=== PATIENT | female | born 1970 | race Two or more races ===

== ENCOUNTER 2016-03-14 14:17 | Emergency (ER) | payer MEDICAID ==
[2016-03-14 14:59] VITALS: BP 132/85; PULSE 73; RESP 18; TEMP 98.6; O2SAT 99
[2016-03-14] MEDS ORDERED: NS 1,000 ML IV ONE (15:26)
[2016-03-14] MEDS ORDERED: ONDANSETRON 4 MG/2 ML VIAL IVP ONE (15:28)
--- NOTE | 2016-03-14 15:33 | UCPHY ---
H & P Patient Type: New Chief Complaint Nursing Narrative: PAINFUL SHINGLES WOUNDS CONTINUE FOR 2 WEEKS , SEEN 2 WEEKS AGO AND GIVEN ANTIVIRAL, SEEN AT [facility] LAST NIGHT GIVEN ABX - BACTRIM AND KELFEX, STATES DOES NOT FEEL TODAY. DENIES FEVERS Time Seen by Provider: 03/14/16 15:13 HPI/ROS: This patient complains of vomiting anorexia, fevers and ongoing significant left forearm rash from shingles. She reports 6 episodes of shingles this year and this episode was diagnosed 2 weeks ago. She completed a 10 day course of acyclovir 4 days ago with complication of vomiting and syncope 2 days ago. She was seen at [facility] Emergency Department and rehydrated noted to have leukocytosis at that time with cultures that were pending. She also had diarrhea at that time. She reports ongoing nausea and vomiting since then despite Zofran at home. She had a fever of 101 last night and this morning. She has been taking Tylenol with partial relief. Her last dose was 3 and 0.5 hours ago. ROS: She reports no headache or other HEENT complaints. She reports feeling lousy in terms of constitutional symptoms she describes fatigue. No pulmonary symptoms. Cardiovascular: No lightheadedness today. GI: She has anorexia. She denies abdominal pain. Her diarrhea resolved. Her vomiting persists. The most recent episode was at noon. No hematemesis. : No symptoms integumentary: She has a large scab to left forearm that she states has been similar to her previous episodes of shingles. 10 point ROS is otherwise negative Source: Patient Exam Limitations: No limitations - Medical/Surgical History PMH: Tested negative for HIV 6 months ago and she denies any risk factors for HIV. This study was done because of her recurrent shingles. Other PMH: SHINGLES 7 TIMES IN 2016 WITH +MRSA IN WOUNDS, PROTEIN S DEF - Family History Significant Family History: No pertinent family hx - Social History Smoking Status: Never smoked Alcohol Use: Occasionally Drug Use: None Additional Social History: She works as a live-in auto mechanic She recently moved to [place] from [place]. Her episodes of shingles started while she was living in [place]. She denies any significant recent stressors. - Physical Exam Exam: General Appearance: Alert, no distress. Eyes: Pupils equal and round no pallor or injection. ENT, Mouth: Mucous membranes moist. Respiratory: There are no retractions, lungs are clear to auscultation. Cardiovascular: Regular rate and rhythm. No murmur gallop or rub Gastrointestinal: Abdomen is soft and nontender, no masses, bowel sounds normal. Neurological: Alert with no focal deficits Skin: Patient has a large eschar to the left forearm approximately 15 cm x 4 cm was sharply demarcated borders. There is no significant surrounding erythema. There is no fluctuance or drainage. She has scarring to her skin in other locations. She has an abrasion to her right forehead as well that she states she sustained from the syncopal episode 2 days ago. Musculoskeletal: Neck is supple nontender. Extremities are symmetrical, full range of motion. Psychiatric: Patient is oriented X 3, there is no agitation. DIFFERENTIAL DIAGNOSIS: After history and physical exam differential diagnosis was considered for dehydration, shingles, other the skin pathology, cellulitis, metabolic disarray, Constitutional: Initial Vital Signs Temperature (C) 37.0 C 03/14/16 14:50 Heart Rate 73 03/14/16 14:50 Respiratory Rate 18 03/14/16 14:50 Blood Pressure 132/85 H 03/14/16 14:50 O2 Sat (%) 99 03/14/16 14:50 O2 Delivery Mode Room Air Allergies/Adverse Reactions: diphenhydramine HCl [From Benadryl] Allergy (Verified 03/14/16 14:49) moxifloxacin HCl [From Avelox] Allergy (Verified 03/14/16 14:49) promethazine HCl [From Phenergan] Allergy (Verified 03/14/16 14:49) Home Medications: Medication Instructions Recorded Xarelto 03/14/16 oxyCODONE/APAP 5/325 [Percocet 1 - 2 tab PO Q4-6PRN PRN #18 tab 03/14/16 5/325 (*)] Medical Decision Making ED Course/Re-evaluation: I reviewed patient's medical history faxed from [facility] which reveals 2 visits. The most recent was yesterday and there is a culture pending from that visit with no results yet available. She had a normal white count yesterday of 5.8. Yesterday there is a small amount of drainage from the eschar on her arm that was cultured. The physicians impression from that visit was staph cellulitis with wound complicating zoster that is resolving. I also reviewed visit from March 11 during which she had a normal head CT without contrast this was done because she apparently had some arm numbness at that time that has since resolved. No other studies including urinalysis urine tox screen and metabolic panel are normal from that visit. Here in our clinic she is treated with Zofran and a L saline bolus with resolution of nausea. Morphine for pain control. I reviewed p.m. PE of her recent scripts that include both hydrocodone and Percocet. However she does appear to have a painful arm lesion. I counseled her to be cautious regarding opiate use and warned her of potential complications. I also explained we would provide further opiate narcotics from the urgent care and she would need to follow up with primary care. Currently, patient appears well without significant toxicity. I think that she has adequate coverage from the oral Keflex and Bactrim for her eschar/ cellulitis with no significant surrounding erythema currently. - Data Points Laboratory Results: Laboratory Results 03/14/16 15:36 03/14/16 15:36 03/14/16 15:36 WBC 4.18 10^3/uL (3.80-9.50) RBC 4.30 10^6/uL (4.18-5.33) Hgb 12.7 g/dL (12.6-16.3) Hct 38.1 % (38.0-47.0) MCV 88.6 fL (81.5-99.8) MCH 29.5 pg (27.9-34.1) MCHC 33.3 g/dL (32.4-36.7) RDW 14.6 % (11.5-15.2) Plt Count 359 10^3/uL (150-400) MPV 9.5 fL (8.7-11.7) Neut % (Auto) 59.8 % (39.3-74.2) Lymph % (Auto) 31.8 % (15.0-45.0) [place] % (Auto) 7.2 % (4.5-13.0) Eos % (Auto) 0.5 L % (0.6-7.6) Baso % (Auto) 0.5 % (0.3-1.7) Nucleat RBC Rel Count 0.0 % (0.0-0.2) Absolute Neuts (auto) 2.50 10^3/uL (1.70-6.50) Absolute Lymphs (auto) 1.33 10^3/uL (1.00-3.00) Absolute Monos (auto) 0.30 10^3/uL (0.30-0.80) Absolute Eos (auto) 0.02 L 10^3/uL (0.03-0.40) Absolute Basos (auto) 0.02 10^3/uL (0.02-0.10) Absolute Nucleated RBC 0.00 10^3/uL (0-0.01) Immature Gran % 0.2 % (0.0-1.1) Immature Gran # 0.01 10^3/uL (0.00-0.10) Sodium 140 mEq/L (134-144) Potassium 3.9 mEq/L (3.5-5.2) Chloride 104 mEq/L (97-110) Carbon Dioxide 23 mEq/l (22-31) Anion Gap 13 mEq/L (8-16) BUN 6 L mg/dL (7-23) Creatinine 0.6 mg/dL (0.6-1.0) Estimated GFR > 60 Glucose 97 mg/dL (70-100) Calcium 9.5 mg/dL (8.5-10.4) Medications Given: Discontinued Medications Sodium Chloride (Ns) 1,000 mls @ 0 mls/hr IV ONCE ONE PRN Reason: Wide Open Stop: 03/14/16 15:27 Last Admin: 03/14/16 15:40 Dose: 1,000 mls Morphine Sulfate (Morphine) 6 mg IVP EDNOW ONE Stop: 03/14/16 15:48 Last Admin: 03/14/16 15:58 Dose: 6 mg Ondansetron HCl (Zofran) 4 mg IVP EDNOW ONE Stop: 03/14/16 15:29 Last Admin: 03/14/16 15:43 Dose: 4 mg Departure - Departure Disposition: Home, Routine, Self-Care Clinical Impression: Cellulitis of forearm, left Condition: Good Instructions: Cellulitis (ED) Additional Instructions: Diagnosis: Cellulitis left forearm with wound Plan: Continue Keflex and Bactrim. Her culture should be back within 24 hours from [facility]. Call them to discover the result. Cover your wounds with Tegaderm while your working. Change the dressing regularly. Percocet if needed for pain that prevents sleep. However use the Percocet sparingly. We will not prescribe further opiate narcotics for this condition. You need to follow up with the primary care physician. Call physician listed below to arrange follow-up appointment or see another of your choice Referrals: NONE *PRIMARY CARE P,. [Primary Care Provider] - As per Instructions Johana Blanchard MD [Medical Doctor] - As per Instructions Prescriptions: oxyCODONE/APAP 5/325 [Percocet 5/325 (*)] 1 - 2 tab PO Q4-6PRN PRN #18 tab PRN Reason: Pain - PQRS PQRS Measurement: NA
[2016-03-14 15:47] LABS: % IMMATURE GRANULYOCYTES 0.2 % (0.0-1.1); ABSOLUTE IMMATURE GRANULOCYTES 0.01 10^3/uL (0.00-0.10); ADD DIFF? NO; ADD MORPH? NO; ADD SCAN? NO; ATYPICAL LYMPHOCYTE FLAG 10 (0-99); FRAGMENT RBC FLAG 0 (0-99); HEMATOCRIT 38.1 % (38.0-47.0); HEMOGLOBIN 12.7 g/dL (12.6-16.3); LEFT SHIFT FLG 0 (0-99); LIPEMIA HEMOLYSIS FLAG 80 (0-99); MEAN CELL HEMOGLOBIN 29.5 pg (27.9-34.1); MEAN CELL HEMOGLOBIN CONCENTR. 33.3 g/dL (32.4-36.7); MEAN CELL VOLUME 88.6 fL (81.5-99.8); MEAN PLATELET VOLUME 9.5 fL (8.7-11.7); PLATELET CLUMPS FLAG 0 (0-99); PLATELET COUNT 359 10^3/uL (150-400); RED CELL DISTRIBUTION WIDTH 14.6 % (11.5-15.2)
[2016-03-14 16:00] LABS: ANION GAP 13 mEq/L (8-16); CALCIUM 9.5 mg/dL (8.5-10.4); CARBON DIOXIDE 23 mEq/l (22-31); CHLORIDE 104 mEq/L (97-110); CREATININE 0.6 mg/dL (0.6-1.0); GLOMERULAR FILTRATION RATE > 60; GLUCOSE 97 mg/dL (70-100); POTASSIUM 3.9 mEq/L (3.5-5.2); SODIUM 140 mEq/L (134-144)
== END 2016-03-14 17:42 | disposition home or self-care (01) ==
LOC: CED 14:17
DX: R11.10 Vomiting, unspecified (principal); R50.9 Fever, unspecified; R21 Rash and other nonspecific skin eruption
CPT/HCPCS: 80048-PO; 85025-PO; 96361-PO; 96374-PO; 96375-PO; 99214-PO; G0463-PO; J2405

== ENCOUNTER 2016-03-16 13:24 | Emergency (ER) | payer MEDICAID ==
[2016-03-16 13:49] VITALS: TEMP 98
[2016-03-16] MEDS ORDERED: NS 1,000 ML IV ONE (15:06)
[2016-03-16] MEDS ORDERED: ONDANSETRON 4 MG/2 ML VIAL IVP ONE (15:06)
--- NOTE | 2016-03-16 15:13 | UCPHY ---
H & P Patient Type: Established Chief Complaint Nursing Narrative: here wed DX with shingles to Lt wrist - put antibotics and coversed with tegaderm- wound now weeping and feel sick all over - fevers/N/V Source: Patient Exam Limitations: No limitations - Personal History LMP (Females 10-55): Post Menopausal - Medical/Surgical History Other PMH: Hx of shingles - Family History Significant Family History: No pertinent family hx - Social History Smoking Status: Never smoked HPI/ROS: CHIEF COMPLAINT: Shingles, nausea and vomiting HISTORY OF PRESENT ILLNESS: diagnosis shingles on her left forearm 2 days ago. She was discharged home with acyclovir and pain medication. Since that time she has had a worsening rash that is now sloughing off. She has some chills. 10/10 pain in the arm. No position of comfort. No alleviating factors. Worse with any kind of movement or palpation. She has been unable to keep down her medications due to this. No headache. No confusion. No weakness. No other associated complaints or modifying factors for this. REVIEW OF SYSTEMS: Ten systems reviewed and are negative unless otherwise noted in the HPI EXAMINATION General Appearance: Alert, no distress Head: normocephalic, atraumatic Eyes: Pupils equal and round, no conjunctival pallor or injection ENT, Mouth: Mucous membranes moist Neck: Normal inspection, supple, non-tender Respiratory: Lungs are clear to auscultation . Cardiovascular: Regular rate and rhythm . No murmur Gastrointestinal: Abdomen is soft and nontender Neurological: A&O, nonfocal, strength is symmetric. Skin: Warm and dry . There are multiple areas of scar tissue about both arms from remote. There is a 4 cm x 2 cm area vesicular rash along with skin sloughing and granulation tissue noted. No bleeding. No induration or fluctuance. There is some purulence in the wound bed. Extremities: Significant tenderness to palpation of the left forearm an area of rash. Otherwise range of motion is fully intact without abnormality. Psychiatric: Mood and affect normal DIFFERENTIAL DIAGNOSES: Including but not limited to: Shingles infection, secondary bacterial infection, cellulitis, abscess MDM: left forearm shingles that is refractory to oral medication in over 2 days. Significant pain in the area. Vital signs are stable. No other abnormalities on examination. Providing IV fluid resuscitation, pain medication and we will check laboratory studies. 4:16 p.m. labs are well within normal limits. Vital signs stable. I did review the patient's prescription monitoring profile, she has 12 prescriptions of narcotics within the past 30 days. Wound has been irrigated and debrided. We will discharge her home with nausea medication instruction to follow up with the primary care physician. 4:45 p.m. wound is significantly improved with good granulation tissue in the wound bed. We will dress the wound with a cotton 4 x 4 and Kerlix. Discharge home with continued therapy. She is to follow up with the primary care physician for further care. We discussed her recent narcotic prescriptions and I informed her that I declined to write her for any other medication at this time. Recommended that she obtain a primary care physician or painter ski edge for further pain medication. I also recommended that should her pain not be tolerable at home, she should present to the emergency department if it worsens. She is comfortable with this plan and discharged home stable condition. SUPERVISION: Patient was evaluated in conjunction with the supervising physician. Please see their note for details. (Reinier Caballero) Constitutional: Initial Vital Signs Temperature (C) 36.6 C 03/16/16 13:46 Heart Rate 83 03/16/16 13:46 Respiratory Rate 18 03/16/16 13:46 Blood Pressure 154/65 H 03/16/16 13:46 O2 Sat (%) 98 03/16/16 13:46 O2 Delivery Mode Room Air Allergies/Adverse Reactions: diphenhydramine HCl [From Benadryl] Allergy (Verified 03/14/16 14:49) moxifloxacin HCl [From Avelox] Allergy (Verified 03/14/16 14:49) promethazine HCl [From Phenergan] Allergy (Verified 03/14/16 14:49) Home Medications: Medication Instructions Recorded Xarelto 03/14/16 oxyCODONE/APAP 5/325 [Percocet 1 - 2 tab PO Q4-6PRN PRN #18 tab 03/14/16 5/325 (*)] Bactrim DS 03/16/16 Gabapentin [Neurontin 300 MG (*)] 300 mg PO Q8 PRN #15 cap 03/16/16 ceFAZolin 03/16/16 valACYclovir 03/16/16 Medical Decision Making Other Provider: The patient was evaluated and managed by the Physician Gas Plant Operator, Reinier Caballero. My co-signature indicates that I have reviewed this chart and I agree with the findings and plan of care as documented. I am the secondary supervising physician. (Birgit Valencia) - Data Points Laboratory Results: Laboratory Results 03/16/16 15:50 03/16/16 15:50 03/16/16 15:50 WBC 3.83 10^3/uL (3.80-9.50) RBC 4.04 L 10^6/uL (4.18-5.33) Hgb 12.0 L g/dL (12.6-16.3) Hct 35.9 L % (38.0-47.0) MCV 88.9 fL (81.5-99.8) MCH 29.7 pg (27.9-34.1) MCHC 33.4 g/dL (32.4-36.7) RDW 14.6 % (11.5-15.2) Plt Count 312 10^3/uL (150-400) MPV 9.6 fL (8.7-11.7) Neut % (Auto) 54.3 % (39.3-74.2) Lymph % (Auto) 35.0 % (15.0-45.0) [place] % (Auto) 8.1 % (4.5-13.0) Eos % (Auto) 1.8 % (0.6-7.6) Baso % (Auto) 0.5 % (0.3-1.7) Nucleat RBC Rel Count 0.0 % (0.0-0.2) Absolute Neuts (auto) 2.08 10^3/uL (1.70-6.50) Absolute Lymphs (auto) 1.34 10^3/uL (1.00-3.00) Absolute Monos (auto) 0.31 10^3/uL (0.30-0.80) Absolute Eos (auto) 0.07 10^3/uL (0.03-0.40) Absolute Basos (auto) 0.02 10^3/uL (0.02-0.10) Absolute Nucleated RBC 0.00 10^3/uL (0-0.01) Immature Gran % 0.3 % (0.0-1.1) Immature Gran # 0.01 10^3/uL (0.00-0.10) Sodium 140 mEq/L (134-144) Potassium 4.1 mEq/L (3.5-5.2) Chloride 104 mEq/L (97-110) Carbon Dioxide 24 mEq/l (22-31) Anion Gap 12 mEq/L (8-16) BUN 6 L mg/dL (7-23) Creatinine 0.6 mg/dL (0.6-1.0) Estimated GFR > 60 Glucose 100 mg/dL (70-100) Calcium 9.5 mg/dL (8.5-10.4) Medications Given: Discontinued Medications Sodium Chloride (Ns) 1,000 mls @ 0 mls/hr IV ONCE ONE PRN Reason: Wide Open Stop: 03/16/16 15:07 Last Admin: 03/16/16 15:50 Dose: 1,000 mls Morphine Sulfate (Morphine) 6 mg IVP EDNOW ONE Stop: 03/16/16 15:07 Last Admin: 03/16/16 16:05 Dose: 6 mg Ondansetron HCl (Zofran) 4 mg IVP EDNOW ONE Stop: 03/16/16 15:07 Last Admin: 03/16/16 15:55 Dose: 4 mg Departure - Departure Disposition: Home, Routine, Self-Care Clinical Impression: Shingles, Nausea & vomiting Condition: Good Instructions: Shingles (ED) Additional Instructions: Follow-up with primary care physician or painter ski edge. ER if your pain persists and is intolerable at home Referrals: NONE *PRIMARY CARE P,. [Primary Care Provider] - As per Instructions Shelia Berumen MD [Medical Doctor] - As per Instructions Prescriptions: Gabapentin [Neurontin 300 MG (*)] 300 mg PO Q8 PRN #15 cap PRN Reason: Pain, Mild - PQRS PQRS Measurement: Not applicable (Reinier Caballero)
[2016-03-16 15:58] LABS: % IMMATURE GRANULYOCYTES 0.3 % (0.0-1.1); ABSOLUTE IMMATURE GRANULOCYTES 0.01 10^3/uL (0.00-0.10); ADD DIFF? NO; ADD MORPH? NO; ADD SCAN? NO; ATYPICAL LYMPHOCYTE FLAG 20 (0-99); FRAGMENT RBC FLAG 0 (0-99); HEMATOCRIT 35.9 % (38.0-47.0); LEFT SHIFT FLG 0 (0-99); LIPEMIA HEMOLYSIS FLAG 80 (0-99); MEAN CELL HEMOGLOBIN 29.7 pg (27.9-34.1); MEAN CELL HEMOGLOBIN CONCENTR. 33.4 g/dL (32.4-36.7); MEAN CELL VOLUME 88.9 fL (81.5-99.8); MEAN PLATELET VOLUME 9.6 fL (8.7-11.7); PLATELET CLUMPS FLAG 0 (0-99); PLATELET COUNT 312 10^3/uL (150-400); RED BLOOD CELL COUNT 4.04 10^6/uL (4.18-5.33); RED CELL DISTRIBUTION WIDTH 14.6 % (11.5-15.2)
[2016-03-16 16:09] LABS: ANION GAP 12 mEq/L (8-16); CALCIUM 9.5 mg/dL (8.5-10.4); CARBON DIOXIDE 24 mEq/l (22-31); CHLORIDE 104 mEq/L (97-110); CREATININE 0.6 mg/dL (0.6-1.0); GLOMERULAR FILTRATION RATE > 60; GLUCOSE 100 mg/dL (70-100); POTASSIUM 4.1 mEq/L (3.5-5.2); SODIUM 140 mEq/L (134-144)
[2016-03-16 16:34] VITALS: BP 146/106; PULSE 90; RESP 20; O2SAT 97
== END 2016-03-16 17:00 | disposition home or self-care (01) ==
LOC: CED 13:24
DX: B02.9 Zoster without complications (principal); R11.2 Nausea with vomiting, unspecified
CPT/HCPCS: 11042-PO; 80048-PO; 85025-PO; 96361-PO; 96374-PO; 96375-PO; 99214-PO; G0463-PO; J2405

== ENCOUNTER 2016-03-19 19:41 | Emergency (ER) | payer MEDICAID ==
[2016-03-19 20:07] VITALS: TEMP 97.9
--- NOTE | 2016-03-19 21:11 | UCPHY ---
H & P Time Seen by Provider: 03/19/16 20:49 Patient Type: Established HPI/ROS: CHIEF COMPLAINT: rectal bleed HISTORY OF PRESENT ILLNESS: Patient is a 45-year-old female on Xarelto for protein S deficiency who presents to the emergency department with rectal bleeding since last night. The patient was diagnosed with shingles 3 weeks ago. She subsequently developed an infection at her shingles rash location on her left forearm. She was seen in urgent care on 03/16/2016 and given valacyclovir and Bactrim. Last night she had an episode of diarrhea and lower abdominal cramping. She noticed a slight amount of blood. She continued to have multiple episodes of diarrhea throughout the day. At 2:00 p.m. she had bright red blood in her diarrhea. She denies fevers or chills. No significant pain at this time. No lightheadedness or dizziness. REVIEW OF SYSTEMS: My complete review of systems is negative except as mentioned in the HPI. 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 HEENT: Eyes normal to inspection, normal pharynx, no signs of dehydration. NECK: No thyromegaly, no lymphadenopathy, supple. RESPIRATORY: Clear to auscultation bilaterally, no rales, rhonchi or wheezing. CVS: Regular rate and rhythm, no rubs, murmurs, or gallops. ABDOMEN: Soft, nontender, nondistended, no organomegaly. Benign BACK: No CVA tenderness. SKIN: Normal color, no rash, warm, dry. No pallor. EXTREMITIES: patient has a clean and dry dressing on her left forearm. This is at her zoster location. There is no surrounding erythema or streaking up her arm. She is neurovascular intact distally. NEURO/PSYCH: [Alert and oriented x3, normal mood and affect. Constitutional: Initial Vital Signs Temperature (C) 36.6 C 03/19/16 20:04 Heart Rate 92 03/19/16 20:04 Respiratory Rate 18 03/19/16 20:04 Blood Pressure 127/83 H 03/19/16 20:04 O2 Sat (%) 97 03/19/16 20:04 O2 Delivery Mode Room Air Allergies/Adverse Reactions: diphenhydramine HCl [From Benadryl] Allergy (Verified 03/14/16 14:49) moxifloxacin HCl [From Avelox] Allergy (Verified 03/14/16 14:49) promethazine HCl [From Phenergan] Allergy (Verified 03/14/16 14:49) Home Medications: Medication Instructions Recorded Xarelto 03/14/16 Bactrim DS 03/16/16 Gabapentin [Neurontin 300 MG (*)] 300 mg PO Q8 PRN #15 cap 03/16/16 ceFAZolin 03/16/16 valACYclovir 03/16/16 Medical Decision Making ED Course/Re-evaluation: Injuring care discussed possible etiologies with the patient. Patient is noted to be on Bactrim and Xarelto. An IV was placed. Laboratory studies were obtained. Stool studies were sent. Patient was given morphine 4 mg IV for pain control. I reviewed the patient's laboratory studies. She was mildly anemic but this is improved from her previous value. She has mild hypokalemia at 3.3. On recheck the patient was feeling better. I discussed her laboratory studies. She is aware that her C diff is pending. She is also aware she needs to follow up with the primary care physician for results. I answered all of her questions prior to leaving. She is given warnings prior to leaving. She will return with worsening symptoms. She will continue her medications as prescribed. Differential Diagnosis: My differential includes but is not limited to diarrhea, internal hemorrhoids, external hemorrhoids, diverticulosis, diverticulitis, C diff, electrolyte abnormality, anemia, medication reaction - Data Points Laboratory Results: Laboratory Results 03/19/16 22:00 03/19/16 22:00 03/19/16 03/19/16 22:00 21:15 WBC 7.34 10^3/uL (3.80-9.50) RBC 4.10 L 10^6/uL (4.18-5.33) Hgb 12.1 L g/dL (12.6-16.3) Hct 36.2 L % (38.0-47.0) MCV 88.3 fL (81.5-99.8) MCH 29.5 pg (27.9-34.1) MCHC 33.4 g/dL (32.4-36.7) RDW 15.3 H % (11.5-15.2) Plt Count 345 10^3/uL (150-400) MPV 9.5 fL (8.7-11.7) Neut % (Auto) 64.6 % (39.3-74.2) Lymph % (Auto) 28.1 % (15.0-45.0) [place] % (Auto) 5.9 % (4.5-13.0) Eos % (Auto) 0.7 % (0.6-7.6) Baso % (Auto) 0.4 % (0.3-1.7) Nucleat RBC Rel Count 0.0 % (0.0-0.2) Absolute Neuts (auto) 4.75 10^3/uL (1.70-6.50) Absolute Lymphs (auto) 2.06 10^3/uL (1.00-3.00) Absolute Monos (auto) 0.43 10^3/uL (0.30-0.80) Absolute Eos (auto) 0.05 10^3/uL (0.03-0.40) Absolute Basos (auto) 0.03 10^3/uL (0.02-0.10) Absolute Nucleated RBC 0.00 10^3/uL (0-0.01) Immature Gran % 0.3 % (0.0-1.1) Immature Gran # 0.02 10^3/uL (0.00-0.10) PT 12.6 SEC (12.0-15.0) INR 0.96 (0.83-1.16) APTT 26.3 SEC (23.0-38.0) Sodium 138 mEq/L (134-144) Potassium 3.3 L mEq/L (3.5-5.2) Chloride 100 mEq/L (97-110) Carbon Dioxide 24 mEq/l (22-31) Anion Gap 14 mEq/L (8-16) BUN 14 mg/dL (7-23) Creatinine 0.6 mg/dL (0.6-1.0) Estimated GFR > 60 Glucose 97 mg/dL (70-100) Calcium 8.8 mg/dL (8.5-10.4) C. difficile Tox (PCR) Pending Medications Given: Discontinued Medications Sodium Chloride (Ns) 1,000 mls @ 0 mls/hr IV ONCE ONE PRN Reason: Wide Open Stop: 03/19/16 21:14 Last Admin: 03/19/16 21:40 Dose: 1,000 mls Morphine Sulfate (Morphine) 4 mg IVP EDNOW ONE Stop: 03/19/16 21:48 Last Admin: 03/19/16 21:45 Dose: 4 mg Ondansetron HCl (Zofran) 4 mg IVP EDNOW ONE Stop: 03/19/16 21:14 Last Admin: 03/19/16 21:41 Dose: 4 mg Departure - Departure Disposition: Home, Routine, Self-Care Clinical Impression: Diarrhea Qualifiers: Diarrhea type: unspecified type Qualifier Code: (R19.7) Diarrhea, unspecified Condition: Good Instructions: Acute Diarrhea (ED) Additional Instructions: Return with increasing pain, fever, vomiting or any other concerns. Referrals: Maegan Ryder MD [Medical Doctor] - As per Instructions - PQRS PQRS Measurement: My PQRS negative my PQRS negative my PQRS negative my PQRS negative 134: Depression screening and followup, PRIME MD-PHQ2 (12 years and older) Over the last 2 weeks, how often have you been bothered by any of the following problems? 1. Feeling down, depressed, or hopeless? 2. Little interest or pleasure in doing things? Patient answered no to both 1 and 2 130: Documentation of medications. Reviewed all patient medications, doses, route and frequency. 226: Do you smoke? No.
[2016-03-19] MEDS ORDERED: NS 1,000 ML IV ONE (21:13)
[2016-03-19] MEDS ORDERED: ONDANSETRON 4 MG/2 ML VIAL IVP ONE (21:13)
[2016-03-19 22:03] LABS: % IMMATURE GRANULYOCYTES 0.3 % (0.0-1.1); ABSOLUTE IMMATURE GRANULOCYTES 0.02 10^3/uL (0.00-0.10); ADD DIFF? NO; ADD MORPH? NO; ADD SCAN? NO; ATYPICAL LYMPHOCYTE FLAG 0 (0-99); FRAGMENT RBC FLAG 0 (0-99); HEMATOCRIT 36.2 % (38.0-47.0); HEMOGLOBIN 12.1 g/dL (12.6-16.3); LEFT SHIFT FLG 0 (0-99); LIPEMIA HEMOLYSIS FLAG 80 (0-99); MEAN CELL HEMOGLOBIN 29.5 pg (27.9-34.1); MEAN CELL HEMOGLOBIN CONCENTR. 33.4 g/dL (32.4-36.7); MEAN CELL VOLUME 88.3 fL (81.5-99.8); MEAN PLATELET VOLUME 9.5 fL (8.7-11.7); PLATELET CLUMPS FLAG 0 (0-99); PLATELET COUNT 345 10^3/uL (150-400); RED CELL DISTRIBUTION WIDTH 15.3 % (11.5-15.2)
[2016-03-19 22:12] LABS: INR 0.96 (0.83-1.16); PROTIME(PATIENT) 12.6 SEC (12.0-15.0)
[2016-03-19 22:13] LABS: APTT 26.3 SEC (23.0-38.0)
[2016-03-19 22:19] LABS: ANION GAP 14 mEq/L (8-16); CALCIUM 8.8 mg/dL (8.5-10.4); CARBON DIOXIDE 24 mEq/l (22-31); CHLORIDE 100 mEq/L (97-110); CREATININE 0.6 mg/dL (0.6-1.0); GLOMERULAR FILTRATION RATE > 60; GLUCOSE 97 mg/dL (70-100); POTASSIUM 3.3 mEq/L (3.5-5.2); SODIUM 138 mEq/L (134-144)
[2016-03-19] MEDS ORDERED: HYDROCOD/APAP 5/325 PREPACK#6 BTL TAKEHOME ONE (22:59)
[2016-03-19 23:27] VITALS: BP 126/89; PULSE 86; RESP 16; O2SAT 94
== END 2016-03-19 23:15 | disposition home or self-care (01) ==
LOC: CED 19:41
DX: R19.7 Diarrhea, unspecified (principal); D68.59 Other primary thrombophilia; B02.9 Zoster without complications; Z79.01 Long term (current) use of anticoagulants
CPT/HCPCS: 80048-PO; 85025-PO; 85610-PO; 85730-PO; 96361-PO; 96374-PO; 96375-PO; 99215-PO; G0463-PO; J2405

== ENCOUNTER 2016-03-22 18:30 | Emergency (ER) | payer SELFPAY ==
[2016-03-22 18:46] VITALS: BP 117/90; PULSE 82; RESP 18; TEMP 99; O2SAT 96
--- NOTE | 2016-03-22 19:19 | UCPHY ---
H & P Patient Type: Established Chief Complaint Nursing Narrative: here 3 night ago with bloody stool - told she had C-diff due to antibotics for lt arm cellulitis- here 32 wks ago for debridment of Lt arm HPI/ROS: HPI CHIEF COMPLAINT: Abdominal pain HISTORY OF PRESENT ILLNESS: This patient very pleasant 45-year-old female significant past medical history for recently diagnosed with shingles left arm with infection now on Bactrim, she was also recently seen here for bloody diarrhea and diagnosed with C diff. She presents back to the Urgent Care stating that she is having some abdominal bloating and some abdominal cramping does not have any pain medication to help control her pain and she is requesting Percocet. She denies having vomiting, fever, she does tell me her bloody stools have improved after being started on Flagyl. Her main complaint is abdominal bloating and some cramping. She declined any IV establishment here in the Urgent Care she declined blood work or any further imaging she is just requesting pain medicine. It is noted that I did review her previous ER records and she often has a very frequent prescribe narcotics. Past Medical History: C diff colitis, shingles, clotting disorder on Xarelto Past Surgical History: Multiple abdominal surgeries including hysterectomy, appendectomy,hernia repair Social History: denies use of drugs alcohol tobacco products Family History: Noncontributory ROS REVIEW OF SYSTEMS: A comprehensive 10 point review of systems is otherwise negative aside from elements mentioned in the history of present illness. Exam Constitutional triage nursing summary reviewed, vital signs reviewed, awake/ alert. Eyes normal conjunctivae and sclera, EOMI, PERRLA. HENT normal inspection, atraumatic, moist mucus membranes, no epistaxis, neck supple/ no meningismus, no raccoon eyes. Respiratory clear to auscultation bilaterally, normal breath sounds, no respiratory distress, no wheezing. Cardiovascular rate normal, regular rhythm, no murmur, no edema, distal pulses normal. Gastrointestinal soft, non-tender, no rebound, no guarding, normal bowel sounds, no distension, no pulsatile mass. Genitourinary no CVA tenderness. Musculoskeletal no midline vertebral tenderness, full range of motion, no calf swelling, no tenderness of extremities, no meningismus, good pulses, neurovascularly intact. Skin pink, warm, & dry, no rash, skin atraumatic. Neurologic awake, alert and oriented x 3, AAOx3, moves all 4 extremities equally, motor intact, sensory intact, CN II-XII intact, normal cerebellar, normal vision, normal speech. Psychiatric normal mood/affect. Heme/Lymph/Immune no lymphadenopathy. Differential Diagnosis: includes but is not limited to in a particular order, abdominal cramping due to C diff colitis, toxic megacolon, worsening C diff colitis, bowel obstruction Medical Decision Making: Patient declined any IV establishment blood work or workup or imaging of her abdomen she would like a prescription for Percocet. I explained to her she needs to get pain medicine to her primary care doctor or pain management however due to her recent diagnosis C diff and abdominal cramping I will prescribe her very limited supply of Percocet. She understands that we do not dispense this continuously from this facility and she needs to seek pain management through her primary or pain management provider. Source: Patient - Personal History LMP (Females 10-55): Hysterectomy Current Tetanus Diphtheria and Acellular Pertussis (TDAP): Yes - Medical/Surgical History Other PMH: hyst/ skin debridment/ GB/MRSA/APPy/Speen removal/Hernia repair/Ortho / - Family History Significant Family History: No pertinent family hx - Social History Smoking Status: Never smoked Constitutional: Initial Vital Signs Temperature (C) 37.2 C 03/22/16 18:42 Heart Rate 82 03/22/16 18:42 Respiratory Rate 18 03/22/16 18:42 Blood Pressure 117/90 H 03/22/16 18:42 O2 Sat (%) 96 03/22/16 18:42 O2 Delivery Mode Room Air Allergies/Adverse Reactions: diphenhydramine HCl [From Benadryl] Allergy (Verified 03/14/16 14:49) moxifloxacin HCl [From Avelox] Allergy (Verified 03/14/16 14:49) promethazine HCl [From Phenergan] Allergy (Verified 03/14/16 14:49) Home Medications: Medication Instructions Recorded Xarelto 03/14/16 Bactrim DS 03/16/16 ceFAZolin 03/16/16 valACYclovir 03/16/16 oxyCODONE HCL/ACETAMINOPHEN 1 each PO BID #20 tablet 03/22/16 [Percocet 5-325 mg Tablet] Departure - Departure Disposition: Home, Routine, Self-Care Clinical Impression: Abdominal pain Qualifiers: Abdominal location: generalized Qualifier Code: (R10.84) Generalized abdominal pain Condition: Good Instructions: Acute Abdominal Pain (ED), Abdominal Pain (ED) Additional Instructions: 1. drink lots of fluids stay well-hydrated 2. Return to the urgent care if he develops any worsening symptoms questions or concerns includes worsening abdominal pain, high fever, vomiting. Referrals: NONE *PRIMARY CARE P,. [Primary Care Provider] - As per Instructions Prescriptions: oxyCODONE HCL/ACETAMINOPHEN [Percocet 5-325 mg Tablet] 1 each PO BID #20 tablet - PQRS PQRS Measurement: n/a
== END 2016-03-22 19:44 | disposition home or self-care (01) ==
LOC: CED 18:30
DX: R10.84 Generalized abdominal pain (principal)
CPT/HCPCS: G0463-PO